=== PATIENT | female | born 1990 | race African-American/Black ===

== ENCOUNTER 2025-02-16 13:35 | Emergency (ER) | payer MEDICAID ==
[~2025-02-16] VITALS: Ht 157.5 cm; Wt 61.2 kg
[2025-02-16 13:38] VITALS: TEMP 97.8
[2025-02-16] MEDS ORDERED: LIDOCAINE 1% INJ 50 ML MDV IJ ONE (15:07)
[2025-02-16] MEDS: LIDOCAINE 1% INJ 50 ML MDV IJ ONE (15:11)
[2025-02-16 15:32] LABS: PREGNANCY TEST URINE QUAL NEGATIVE (NEGATIVE)
[2025-02-16] MEDS ORDERED: TDAP [DIPH/PERTUSSIS/TET] 0.5 ML VIAL IM ONE (15:41)
[2025-02-16] MEDS: TDAP [DIPH/PERTUSSIS/TET] 0.5 ML VIAL IM ONE (15:44)
[2025-02-16 18:00] VITALS: BP 124/88; O2SAT 97
== END 2025-02-16 18:00 | disposition home or self-care (01) ==
LOC: ER 13:40
DX: S01.81XA Laceration without foreign body of other part of head, initial encounter (principal); F10.129 Alcohol abuse with intoxication, unspecified; G44.309 Post-traumatic headache, unspecified, not intractable; Y08.89XA Assault by other specified means, initial encounter; Y93.89 Activity, other specified; Y92.89 Other specified places as the place of occurrence of the external cause; Y99.8 Other external cause status; Y90.9 Presence of alcohol in blood, level not specified
CPT/HCPCS: 12013; 70450; 84703; 90471; 90715; 99285; J3490

== ENCOUNTER 2025-03-02 16:43 | Emergency (ER) | payer MEDICAID ==
[~2025-03-02] VITALS: Ht 157.5 cm; Wt 61.2 kg
[2025-03-02 16:45] VITALS: BP 142/99; TEMP 98.4; O2SAT 98
[2025-03-02] MEDS ORDERED: MUPI1OIN5 TP (17:02)
== END 2025-03-02 17:31 | disposition home or self-care (01) ==
LOC: ER 17:28
DX: S01.112D Laceration without foreign body of left eyelid and periocular area, subsequent encounter (principal); Z48.02 Encounter for removal of sutures; X58.XXXD Exposure to other specified factors, subsequent encounter